=== PATIENT | female | born 1960 | race Caucasian/White ===

== ENCOUNTER 2017-05-14 11:49 | Emergency (ER) | payer BC ==
[2017-05-14] MEDS ORDERED: ASPIRIN 81 MG TAB.CHEW ONE (12:14)
[2017-05-14] MEDS ORDERED: ASPIRIN 81 MG TAB.CHEW PO ONE (12:15)
--- NOTE | 2017-05-14 12:22 | ERNOTE ---
Chest Pain/Cardiac HPI Chief Complaint: Chest Pain Time Seen by Provider: 05/14/17 12:11 Source: patient Exam Limitations: no limitations Immunizations: IMMUNIZATION HX Immunizations Up to Date Yes Allergies/Adverse Reactions: Allergies Sulfa (Sulfonamide Antibiotics) Allergy (Verified 05/14/17 12:04) codeine Adverse Reaction (Verified 05/14/17 12:04) Home Medications: HOME MEDICATIONS Atenolol 50 mg PO DAILY 08/02/16 [Last Taken Unknown] Synthroid 125 mcg PO DAILY 08/02/16 [Last Taken Unknown] predniSONE [Prednisone] 10 mg PO DAILY 05/14/17 [Last Taken Unknown] Narrative: Patient started with central chest pain while getting ready for work Date (Duration): 05/14/17 Time (Timing): 07:00 Timing: constant Severity/Quality: moderate, tightness Location: central Chest Pain Radiation: no radiation Activities at Onset: none Modifying Factors - Improves: Present: nothing Modifying Factors - Worsens: Present: nothing Nitro Today/Relief: no nitro taken today Aspirin Treatment Today: no aspirin today Associated Symptoms: Absent: dizziness, diaphoresis, fever/chills, palpitations , heartburn, nausea, vomiting Prior Chest Pain/Cardiac Workup: Reports: no prior cardiac workup. Denies: prior chest pain Prior Treatment: Reports: currently on antibiotics - for cellulitis. Denies: recently seen Review of Systems - Review of Systems Constitutional: Present: recent illness - finishing antibiotics for recent cellulitis (leg) and steroids for shingels rash on arm. Absent: fever, chills ENT: Absent: nose congestion, sore throat Respiratory: Absent: shortness of breath Cardiology: Present: See HPI Gastrointestinal/Abdominal: Absent: nausea, vomiting, abdominal pain Genitourinary: Present: no symptoms reported Musculoskeletal: Absent: back pain Skin: Present: rash - healing Neurological: Absent: headache - Patient's Past Medical History Patient History - Medical: GERD, Hypothyroidism Patient History - Cardiac/Respiratory: Hypertension Patient History - Cancer: No Hx of Cancer Patient History - Surgical Procedures: D & C, T & A, Other Patient History - Other: None - Social History Living Situations: spouse Psych History: No pertinent hx Smoking Status: Never smoker Alcohol Use: none Drug Use: none - Immunizations Immunizations Up to Date: Yes Physical Exam - Physical Exam General Appearance: Present: wd/wn, alert, no apparent distress, obese Ears, Nose, Throat: Present: normal pharynx Respiratory: Present: no respiratory distress, normal breath sounds, no accessory muscle use, chest nontender, lungs clear Cardiovascular/Chest: Present: regular rate, rhythm, no murmur Gastrointestinal/Abdominal: Present: nontender, nondistended Extremity Exam: Present: no edema Neurological Exam: Present: alert, oriented, normal mood/affect Skin Exam: Present: normal color, warm/dry ED Progress - Results and Orders Patient's Lab Results:: I have reviewed the patient's lab results. - Vital Signs Patient's Vital Signs:: I have reviewed the patient's vital signs. Vital Signs: Vital Signs 05/14/17 11:54 Temperature 36.9 C Pulse Rate 66 Respiratory 20 Rate Blood Pressure 182/87 O2 Sat by Pulse 98 Oximetry - EKG EKG: NSR, nonspecific ST T wave changes EKG read: Interp. by me - X-Ray X-Ray #1 X-Ray: chest - no acute changes Interpretation: Reviewed by me - Progress/Reassessment Chief Complaint: Chest Pain Progress Note-Subjective: 05/14/17 12:35 pain resolved after one nitro 05/14/17 13:18 discussed results with patient, explained limits of test to rule our CAD, offered admission, patient wants to go home Departure - Departure Clinical Impression: Chest pain Qualifiers: Chest pain type: precordial pain Qualified Code(s): R07.2 - Precordial pain Hypertension Qualifiers: Hypertension type: essential hypertension Qualified Code(s): I10 - Essential ( primary) hypertension Disposition: Home self-care Condition: Good Instructions: Chest Pain Observation Additional Instructions: when you get home take another atenolol 50mg right away, If your blood pressure still is over 150 two hours after you take your daily morning atenolol you might to take an additional one daily take a daily aspirin call your doctor for follow up and more testing and return to the ER at any time for recurrent chest pain Referrals: Ilene Ayon, OPERATING ROOM NURSE [Primary Care Provider] -
[2017-05-14] MEDS ORDERED: NITROGLYCERIN 0.4 MG/TAB BTL SL ONE (12:28)
[2017-05-14 12:40] LABS: Hematocrit 48.5 % (37.0-47.0); Hemoglobin 16.4 gm/dL (12.5-16.0); Mean Cell Volume 88.5 fl (78-100); Mean Corpuscular Hemoglobin 29.9 pg (27-31); Mean Corpuscular Hgb Conc 33.8 g/dl (32-36); Mean Platelet Volume 9.2 fl (6.0-9.5); Neutrophil # 8.1 K/mm3 (1.3-6.0); Platelet Count 267 K/mm3 (150-450); Red Blood Count 5.48 M/mm3 (4.2-5.4); Red Cell Distribution Width 13.4 % (11.5-14.0); White Blood Count 10.9 K/mm3 (4.0-10.5)
[2017-05-14 12:51] LABS: Troponin I Less than 0.017 ng/ml (0.00-0.10)
[2017-05-14 12:54] LABS: ALT 27 U/L (19-67); AST 13 U/L (0-48); Albumin * 3.5 gm/dl (3.4-5.0); Alkaline Phosphatase * 106 U/L (50-170); Anion Gap 11.6 mmol/L (6.8-13.8); BUN/Creatinine Ratio 14.6 (9.0-21.6); Bilirubin, Total 0.4 mg/dL (0.0-1.1); Blood Urea Nitrogen 12 mg/dL (3-23); Ca. Corrected For Albumin 10.5 mg/dL (8.4-10.2); Calcium * 10.4 mg/dL (7.9-10.9); Carbon Dioxide 29.2 mmol/L (24-32.6); Chloride 105 mmol/L (97-106); Glucose * 114 mg/dL (70-110); Potassium 3.8 mmol/L (3.4-4.6); Sodium 142 mmol/L (132-142); Total Protein 7.9 gm/dL (6.2-8.2)
[2017-05-14 13:46] VITALS: BP 180/84
== END 2017-05-14 13:25 | disposition home or self-care (01) ==
LOC: ER 11:49
DX: R07.2 Precordial pain (principal); I10 Essential (primary) hypertension

== ENCOUNTER 2017-09-19 21:38 | Emergency (ER) | payer BC ==
--- NOTE | 2017-09-19 22:18 | ERNOTE ---
Lower Extremity HPI - Narrative Date of Service: 09/19/17 - General Lower Extremities Pain: leg: left Time Seen by Provider: 09/19/17 22:07 Source: patient - Immun/Allergies/Home Medications Immunizations: IMMUNIZATION HX Immunizations Up to Date Yes History of Influenza Vaccine No Allergies/Adverse Reactions: Allergies Allergy/AdvReac Type Severity Reaction Status Date / Time Sulfa (Sulfonamide Allergy Verified 09/19/17 22:04 Antibiotics) codeine AdvReac Verified 09/19/17 22:04 Home Medications: HOME MEDICATIONS Atenolol 50 mg PO DAILY 08/02/16 [Last Taken Unknown] Synthroid 125 mcg PO DAILY 08/02/16 [Last Taken Unknown] - History of Present Illness Narrative: Is a 57-year-old female who comes to the emergency department with left leg swelling for the last week. The patient says that she had a rash develop to her leg below the knee about 6 weeks ago. She has not seen a physician but is been treating this with the previously prescribed triamcinolone. She says that the rash really hasn't gotten any better. She says it is very itchy. It is not painful. It is not located anywhere else. The patient says about a week ago she started having some mild swelling in the leg and it is progressed. She has no history of DVT. No family history of DVT. No significant DVT risk factors. She denies any shortness of breath, coughing, hemoptysis. She denies fever or chills. She has never had cellulitis in her leg. She has no other complaints Review of Systems - Review of Systems Constitutional: Present: no symptoms reported EYE: Present: no symptoms reported ENT: Present: no symptoms reported Respiratory: Present: no symptoms reported Cardiology: Present: no symptoms reported Gastrointestinal/Abdominal: Present: no symptoms reported Genitourinary: Present: no symptoms reported Musculoskeletal: Present: other Skin: Present: rash - swelling left leg Neurological: Present: no symptoms reported Endocrine: Present: no symptoms reported Hematologic/Lymphatic: Present: no symptoms reported Psych: Present: no symptoms reported All Other Systems: All systems neg except as marked - Patient's Past Medical History Patient History - Medical: GERD, Hypothyroidism Patient History - Cardiac/Respiratory: Hypertension Patient History - Cancer: No Hx of Cancer Patient History - Surgical Procedures: D & C, T & A, Other Patient History - Other: None - Social History Living Situations: home Psych History: No pertinent hx Smoking Status: Never smoker Alcohol Use: none Drug Use: none - Immunizations Immunizations Up to Date: Yes History of Influenza Vaccine: No Physical Exam - Physical Exam General Appearance: Present: wd/wn, alert, no apparent distress Head Exam: Present: normal inspection, no evidence of injury Eye Exam: Normal inspection: bilateral Ears, Nose, Throat: Present: normal ENT inspection, normal pharynx Neck: Present: normal inspection Respiratory: Present: no respiratory distress, normal breath sounds, lungs clear Cardiovascular/Chest: Present: regular rate, rhythm, no murmur Gastrointestinal/Abdominal: Present: normal bowel sounds, nontender, nondistended Back Exam: Present: normal inspection, normal range of motion Extremity Exam: Present: extremity edema - there is no cords. No significant erythema proximally to make me think of cellulitis, other - patient has diffuse swelling circumferentially to the left lower extremity from the knee distally. Not really pitting edema. She has a diffuse papular rash involving the primarily anterior aspect of the leg. The foot is relatively spared except with a few small papular lesions. Neurological Exam: Present: alert, oriented, normal mood/affect Skin Exam: Present: other - diffuse papular rash as described in the leg exam Lymphatic Exam: Present: no adenopathy ED Progress - Results and Orders Patient's Lab Results:: I have reviewed the patient's lab results. - Vital Signs Patient's Vital Signs:: I have reviewed the patient's vital signs. Vital Signs: Vital Signs 09/19/17 09/19/17 21:58 22:05 Temperature 36.9 C Pulse Rate 70 66 Respiratory 18 18 Rate Blood Pressure 192/109 171/82 O2 Sat by Pulse 99 99 Oximetry - CT/Ultrasound CT/Ultrasound Narrative: Ultrasound fails to demonstrate deep vein thrombosis - Progress/Reassessment Chief Complaint: Lower Extremity Pain/ Injury Departure Clinical Impression: Leg swelling - Departure Disposition: Home self-care Condition: Good Additional Instructions: As we discussed the ultrasound does not show a deep vein thrombosis or blood clot. White blood cell count is normal. There is no evidence of a blood clot nor is there evidence of an infection. I suspect that the swelling U her having is due to the rash. I highly suspect that the rash is partially autoimmune in nature. This manger body may be attacking itself for some reason. Nevertheless until you seen a research asst and had this definitively diagnosed further treatment is not appropriate. Call your family doctor and set up a follow-up appointment as soon as possible. Certainly if you develop redness streaking up her leg, fever, chest pain, severe shortness of breath or any new concerning symptoms return to the ER Referrals: Ilene Ayon, RASHEEDA [Primary Care Provider] -
[2017-09-19 22:27] LABS: Hematocrit 45.4 % (37.0-47.0); Hemoglobin 15.4 gm/dL (12.5-16.0); Mean Cell Volume 89.5 fl (78-100); Mean Corpuscular Hemoglobin 30.4 pg (27-31); Mean Corpuscular Hgb Conc 33.9 g/dl (32-36); Mean Platelet Volume 9.3 fl (6.0-9.5); Platelet Count 261 K/mm3 (150-450); Red Blood Count 5.07 M/mm3 (4.2-5.4); Red Cell Distribution Width 12.9 % (11.5-14.0); White Blood Count 9.7 K/mm3 (4.0-10.5)
[2017-09-19 23:40] VITALS: BP 182/88
== END 2017-09-19 23:40 | disposition home or self-care (01) ==
LOC: ER 21:38
DX: M79.89 Other specified soft tissue disorders (principal); E03.9 Hypothyroidism, unspecified; I10 Essential (primary) hypertension